=== PATIENT | male | born 1940 | race Caucasian/White ===

== ENCOUNTER 2020-12-04 11:12 | Emergency (ER) | payer OTHER ==
[~2020-12-04] VITALS: Ht 177.8 cm; Wt 77.1 kg
[2020-12-04 11:25] VITALS: BP 117/70
== END 2020-12-04 13:28 | disposition home or self-care (01) ==
LOC: EDBD 11:12 → ER 11:12
DX: N39.0 Urinary tract infection, site not specified (principal); K21.9 Gastro-esophageal reflux disease without esophagitis; J44.9 Chronic obstructive pulmonary disease, unspecified; I10 Essential (primary) hypertension; I25.2 Old myocardial infarction

== ENCOUNTER 2025-05-04 15:44 | Inpatient (IN) | payer OTHER, MEDICARE ==
[~2025-05-04] VITALS: Ht 182.9 cm; Wt 85.3 kg
--- NOTE | 2025-05-04 15:59 | ED.PDOC ---
SOB-HPI HPI Comments 85 y.o male with PMHx of COPD, CAD, and HLD, presents to the ED via EMS for a chief complaint of SOB associated with a non productive cough, and a generalized headache that started today. Patient reports panicking as soon as symptoms presented, prompting him to call 911. EMS reports on scene noting wheezing and SPO2 at 91% on 2 liters of his home oxygen. EMS then gave one breathing treatment en route with some relief. Patient is now saturating at 96%. Patient also mentions diarrhea last night with no nausea, vomiting, fever, chills or abdominal pain. Time Seen by MD: 15:43 Reviewed notes: Nurses Notes, Returned Case Inspector Notes, Medications, Allergies Information Source: Patient, Emergency Med Personnel Mode of Arrival: EMS Severity: Moderate Timing: Hours Duration: Since onset Context: At Rest PE Risk Factors: None History of: COPD Prehospital treatment: 12 Lead EKG, Breathing Tx (1), Rn Clinical Research, Oxygen Modifying Factors: Nothing Associated Signs and Symptoms: Wheeze, Cough, Anxiety If cough with SOB: Non-Productive Past Medical History PAST MEDICAL HISTORY: CAD, COPD, GERD, High Lipids, HTN, [place] Surgical History: Appendectomy, PTCA Family History Family History: Reviewed,noncontributory to illness Social History Smoker: Quit Greater Than 1 Year Alcohol: Occasionally Drugs: Denies Drug Use Lives In: Home Constitutional: denies: chills, diaphoresis, fatigue, fever, malaise, sweats, weakness, others EENTM: denies: blurred vision, double vision, ear bleeding, ear discharge, ear drainage, ear pain, ear ringing, eye pain, eye redness, hearing loss, mouth pain, mouth swelling, nasal discharge, nose bleeding, nose congestion, nose pain, photophobia, tearing, throat pain, throat swelling, voice changes, others Respiratory: reports: cough, SOB at rest, shortness of breath, wheezing; denies: hemoptysis, orthopnea, SOB with excertion, stridor, others Cardiovascular: denies: chest pain, dizzy spells, diaphoresis, Dyspnea on exertion, edema, irregular heart beat, left arm pain, lightheadedness, palpitations, PND, syncope, others Gastrointestinal: denies: abdomen distended, abdominal pain, blood streaked bowels, constipated, diarrhea, dysphagia, difficulty swallowing, hematemesis, melena, nausea, poor appetite, poor fluid intake, rectal bleeding, rectal pain, vomiting, others Genitourinary: denies: burning, dysuria, flank pain, frequency, hematuria, incontinence, penile discharge, penile sore, pain, testicle pain, testicle swel ling, urgency, others Neurological: reports: headache; denies: dizziness, fainting, left sided numbness, left sided weakness, numbness, paresthesia, pre-existing deficit, right sided numbness, right sided weakness, seizure, speech problems, tingling, tremors, weakness, others Musculoskeletal: denies: back pain, gout, joint pain, joint swelling, muscle pain, muscle stiffness, neck pain, others Integumetry: denies: bruises, change in color, change in hair/nails, dryness, laceration, lesions, lumps, rash, wounds, others Allergic/Immunocompromised: denies: Difficulty Healing, Frequent Infections, Hives, Itching, others Hematologic/Lymphatic: denies: anemia, blood clots, easy bleeding, easy bruising, swollen glands, others Endocrine: denies: excessive hunger, excessive sweating, excessive thirst, excessive urination, flushing, intolerance to cold, intolerance to heat, unexplained weight gain, unexplained weight loss, others Psychiatric: denies: anxiety, bipolar disorder, depression, hopeless, panic disorder, schizophrenia, sleepless, suicidal, others All Other Systems: Reviewed and Negative Physical Exam General Appearance: Moderate Distress HEENT: Normal ENT Inspection, Pharynx Normal, TMs Normal Neck: Full Range of Motion, Non-Tender, Normal, Normal Inspection Respiratory: Chest Non-Tender, Decreased Breath Sounds, No Accessory Muscle Use, Respiratory Distress Cardiovascular: No Edema, No JVD, No Murmur, No Gallop, Normal Peripheral Pulses, Regular Rate/Rhythm Breast Exam: Deferred Gastrointestinal: No Organomegaly, Non Tender, No Pulsatile Mass, Normal Bowel Sounds, Soft Genitalia: Deferred Pelvic: Deferred Rectal: Deferred Extremities: No calf tenderness, Normal capillary refill, No pedal edema Musculoskeletal : Apperance: Normal Neurologic: Alert, parking lot spotter II-XII nml as Tested, Motor Weakness, Normal Affect, Normal Mood, No Sensory Deficits Cerebellar Function: Normal Reflexes: Normal Skin: Dry, Normal Color, Warm Lymphatic: No Adenopathy EKG EKG : Pulse Rate (adult): 76 [place]: Normal Cardiac Rhythm: NSR ST: Nonsp Was a procedure done? Was a procedure done?: No Differential Dx Differential Diagnosis: COPD, Hyperventilation, Pneumonia, Respiratory Distress, URI X-Ray, Labs, Meds, VS Vital Signs Date Time Temp Pulse Resp B/P (MAP) Pulse Ox O2 Delivery O2 Flow Rate FiO2 05/04/25 16:50 98.7 90 22 140/74 (96) 96 98.7 05/04/25 16:30 Nasal Cannula* 2 28 05/04/25 16:06 16 97 Nasal Cannula* 3 32 05/04/25 15:59 76 05/04/25 15:47 76 Lab Test 05/04/25 17:00 05/04/25 16:04 Range/Units Urine Color Light-yellow Yellow Urine Clarity Clear Clear Urine pH 5.5 5.0-9.0 Urine Specific [place] 1.016 1.001-1.035 Urine Protein Negative Negative Urine Ketones Negative Negative Urine Blood Negative Negative /uL Urine Nitrite Negative Negative Urine Bilirubin Negative Negative Urine Urobilinogen Normal Negative mg/dL Urine Leukocyte Esterase Negative Negative /uL Urine RBC 1 0 - 3 /hpf Urine Microscopic WBC 1 0-3 /HPF Urine Squamous Epithelial Cells None seen <5 /hpf Urine Bacteria None seen None Seen /hpf Urine Hyaline Casts Mod 0 - 2 /lpf Urine Glucose Normal Normal mg/dL White Blood Count 5.9 4.4-10.8 10^3/uL Red Blood Count 4.43 L 4.5-5.90 10^6/uL Hemoglobin 14.5 13.5-17.5 g/dL Hematocrit 43.4 41.0-53.0 % Mean Corpuscular Volume 98.0 80.0-100.0 fL Mean Corpuscular Hemoglobin 32.7 H 28.0-32.0 pg Mean Corpuscular Hemoglobin Concent 33.4 32.0-36.0 g/dL Red Cell Distribution Width 12.9 11.8-14.3 % Platelet Count 138 L 140-450 10^3/uL Mean Platelet Volume 11.3 H 6.9-10.8 fL Neutrophils (%) (Auto) 65.5 37.0-80.0 % Lymphocytes (%) (Auto) 22.2 10.0-50.0 % Monocytes (%) (Auto) 9.7 0.0-12.0 % Eosinophils (%) (Auto) 2.0 0.0-7.0 % Basophils (%) (Auto) 0.6 0.0-2.0 % Neutrophils # (Auto) 3.9 1.6-8.6 10 ^3/uL Lymphocytes # (Auto) 1.3 0.4-5.4 10 ^3/uL Monocytes # (Auto) 0.6 0-1.3 10 ^3/uL Eosinophils # (Auto) 0.1 0-0.8 10 ^3/uL Basophils # (Auto) 0 0-0.2 10 ^3/uL Nucleated Red Blood Cells 0.1 % Sodium Level 141 136-145 mmol/L Potassium Level 5.2 H 3.5-5.1 mmol/L Chloride Level 106 98-107 mmol/L Carbon Dioxide Level 30 20-31 mmol/L Anion Gap 5 5-15 Blood Urea Nitrogen 25 H 9-23 mg/dL Creatinine 1.79 H 0.700-1.30 mg/dL Glomerular Filtration Rate Calc 36 >90 mL/min BUN/Creatinine Ratio 14.0 10.0-20.0 Serum Glucose 113 H 74-106 mg/dL Calcium Level 9.2 8.7-10.4 mg/dL B-Type Natriuretic Peptide 159.24 0-100 pg/mL Current Medications Medications (Trade) Dose Ordered Sig/[place] Route Start Time Stop Time Status Last Admin Methylprednisolone Sodium Succinate (Solu Medrol) 125 mg ONCE ONCE IV 05/04/25 16:00 05/04/25 16:01 DC 05/04/25 16:29 Ipratropium [place] (Atrovent Medneb) 1 mg ONCE ONCE N 05/04/25 16:00 05/04/25 16:01 DC 05/04/25 16:03 Albuterol (Ventolin Medneb) 10 mg ONCE ONCE N 05/04/25 16:00 05/04/25 16:01 DC 05/04/25 16:03 The CBC is within normal limits The chemistry panel shows a potassium of 5.2 The BUN is 25 the creatinine is 1.79 The BNP is 159.24 The patient was given a breathing treatment of albuterol and Atrovent to address the hyperkalemia The patient was also given Solu-Medrol 125 mg IV push The chest x-ray shows: IMPRESSION: 1. No acute cardiopulmonary pathology. There is a suggestion of interstitial lung disease in the lower lung zones. At this time, the patient is being admitted to the hospitalist Images Reviewed?: Images reviewed and evaluated by me Time of 1ST Reevaluation: 15:55 Reevaluation 1ST: Unchanged Patient Education/Counseling: Diagnosis, Treatment, Prognosis Family Education/Counseling: No Family Present SEPSIS Sepsis Screen Physician Orders Med Neb Initial Treatment (05/04/25 15:51) Chest Portable (05/04/25 15:51) Heplock Iv (05/04/25 15:51) Pulse Oximetry (05/04/25 15:51) Rn Clinical Research (05/04/25 15:51) Blood Pressure (05/04/25 15:51) Electrocardigram (05/04/25 16:51) Electrocardigram (05/04/25 18:51) Vital Signs Date Time Temp Pulse Resp B/P (MAP) Pulse Ox O2 Delivery O2 Flow Rate FiO2 05/04/25 16:50 98.7 90 22 140/74 (96) 96 98.7 05/04/25 16:30 Nasal Cannula* 2 28 05/04/25 16:06 16 97 Nasal Cannula* 3 32 05/04/25 15:59 76 05/04/25 15:47 76 Laboratory Tests Test 05/04/25 16:04 White Blood Count 5.9 10^3/uL (4.4-10.8) Medications Medications Dose Ordered Sig/[place] Route Start Time Stop Time Status Last Admin Dose Admin Albuterol 10 mg ONCE ONCE N 05/04/25 16:00 05/04/25 16:01 DC 05/04/25 16:03 Ipratropium [place] 1 mg ONCE ONCE N 05/04/25 16:00 05/04/25 16:01 DC 05/04/25 16:03 Methylprednisolone Sodium Succinate 125 mg ONCE ONCE IV 05/04/25 16:00 05/04/25 16:01 DC 05/04/25 16:29 Departure 1 Departure Time of Disposition: 19:27 Impression: Primary Impression: Acute respiratory failure Qualified Codes: J96.01 - Acute respiratory failure with hypoxia Additional Impression: COPD exacerbation Disposition: 09 ADMITTED INPATIENT Admit to: Tele Condition: Fair Critical Care Note Critical Care Time?: No Stability Stability form required: Yes Unstable for transfer: Telemetry monitoring (Telemetry monitoring required), ED Physician Assesment (Clinical assesment) Heart Score Heart Score: Heart Score Response (Comments) Value History Moderate Suspicious 1 EKG Repolarization Disturb 1 Age >65 2 Risk Factors 1 or 2 risk factors 1 Troponin Normal limit 0 Total 5 I personally scribed for ROBINSON SPANN MD ([email or web address]) on 05/04/25 at 15:59. Electronically submitted by Janae Austin ([facility]). ROBINSON SPANN MD May 04, 2025 15:59
[2025-05-04] MEDS: ALBUTEROL SULF 2.5 MG/0.5ML(0.5%) NEB SOLN HHN ONE (16:03)
[2025-05-04] MEDS: IPRATROPIUM BROM 0.5 MG/2.5ML INH SOL HHN ONE (16:03)
--- NOTE | 2025-05-04 16:06 | ECG ---
[facility] Test Date: 2025-05-04 Test Time: 15:47:21 Pat Name: MICHELLE SANCHEZ Department: ER Room: Gender: M [place] Man: LETICIA : 1940 Requested By: ROBINSON SPANN Order Number: [id number] Reading MD: Jadon Hannon Measurements Intervals [place] Rate: 76 P: 215 FL: 218 QRS: 55 QRSD: 129 T: 60 QT: 407 QTc: 458 Interpretive Statements Sinus or ectopic atrial rhythm Supraventricular bigeminy Borderline prolonged [place] interval Right bundle branch block Electronically Signed On 05-04-2025 19:39:23 PDT by Jadon Hannon Please click the below link to view image of tracing.
[2025-05-04 16:16] LABS: Hematocrit 43.4 % (41.0-53.0); Hemoglobin 14.5 g/dL (13.5-17.5); Mean Corpuscular Hemoglobin 32.7 pg (28.0-32.0); Mean Corpuscular Volume 98.0 fL (80.0-100.0); Nucleated Red Blood Cells % 0.1 %
[2025-05-04 16:25] LABS: Chloride 106 mmol/L (98-107); Potassium 5.2 mmol/L (3.5-5.1); Sodium 141 mmol/L (136-145)
[2025-05-04 16:26] LABS: Anion Gap 5 (5-15); Calcium 9.2 mg/dL (8.7-10.4); Carbon Dioxide 30 mmol/L (20-31)
[2025-05-04] MEDS: methylPREDNISolone SOD SUCC 125 MG/2 ML VL IV ONE (16:29)
[2025-05-04 16:31] LABS: BUN/Creatinine Ratio 14.0 (10.0-20.0); Blood Urea Nitrogen 25 mg/dL (9-23); Glucose 113 mg/dL (74-106)
--- NOTE | 2025-05-04 17:09 | DVH ---
AP portable chest CLINICAL INDICATION: sob FINDINGS: Heart size is enlarged. The aorta is tortuous. Prominent interstitial markings in the lung bases. IMPRESSION: 1. No acute cardiopulmonary pathology. There is a suggestion of interstitial lung disease in the lower lung zones.
[2025-05-04 17:52] LABS: Urine Protein, UAD Negative (Negative)
[2025-05-04 23:15] VITALS: PULSE 74; RESP 12; O2SAT 98
[2025-05-04] MEDS ORDERED: MORPHINE SULFATE INJ 2 MG/ml SYRG IV PRN (23:15)
[2025-05-04] MEDS ORDERED: NITROGLYCERIN 0.4 MG SL TAB SL PRN (23:15)
--- NOTE | 2025-05-04 23:19 | DVHHP2 ---
History of Present Illness History of Present Illness This is a 85-year-old male with past medical history of COPD with 3 L home oxygen, CAD with 3 stent three years ago, hyperlipidemia, insomnia, gait instability BIBEMS with a complain of shortness of breaths which is for last 3 years but worsen last 3 days which is sudden onset and gradually worsen day by day, aggravated on any exertion like walking but relief on rest. Patient also complain of mild chest pain, intermittent, 2/10 intensity, localized, no radiation. Both chest pain and SOB associated with dizziness and tired.As per ER physician, EMS reports on scene no wheezing SPO2 at 91% on 3 liters of his home oxygen. EMS then gave one breathing treatment en route with some relief. Patient is now saturating at 95% on arrival. Patient currently denies any cough, productive sputum, headache, nausea, abdominal pain, dysuria, any acute distress. PAST MEDICAL HISTORY: CAD with 3 stent 3 years ago, COPD on 3 L home oxygen, GERD, HLD, HTN, [place] Surgical History: Appendectomy, PTCA Family History: Reviewed,noncontributory to illness Social History Smoker: Quit Greater Than 1 Year Alcohol: Occasionally Drugs: Denies Drug Use Lives In: Home, alone Allergy: No known allergy PCP: [facility]. Review of Systems Constitutional: Yes: Weakness, Malaise; No: Fever, Chills, Sweats, Other Eyes: No: Pain, Vision change, Conjunctivae inflammation, Eyelid inflammation, Other, Redness ENT: Other (Bilateral hearing difficulty); No: Ear pain, Ear discharge, Nose pain, Nose discharge, Nose congestion, Mouth pain, Mouth swelling, Throat pain, Throat swelling Respiratory: Cough, Shortness of breath, SOB with excertion, Other (Currently on oxygen) Cardiovascular: Chest Pain; No: Palpitations, Orthopnea, Paroxysmal Noc. Dyspnea, Edema, Lt Headedness, Other Gastrointestinal: No: Nausea, Vomiting, Abdominal Pain, Diarrhea, Constipation, Melena, Hematochezia, Other Genitourinary: No Dysuria, No Frequency, No Incontinence, No Hematuria, No Retention, No Other Musculoskeletal: No: other, neck pain, shoulder pain, arm pain, back pain, hand pain, leg pain, foot pain Skin: No: Rash, Lesions, Jaundice, Bruising, Other Neurological: No: Weakness, Numbness, Incoordination, Change in speech, Confusion, Seizures, Other (Gait instability) Allergies: Coded Allergies: NO KNOWN ALLERGIES (Unverified , 12/04/20) Medications Current Medications Medications Dose Ordered Sig/[place] Route Start Time Stop Time Status Last Admin Dose Admin Nitroglycerin 0.4 mg Q5MINP PRN SL 05/04/25 23:15 Morphine Sulfate 2 mg Q30M PRN IV 05/04/25 23:15 Exam Vital Signs Vital Signs Date Time Temp Pulse Resp B/P (MAP) Pulse Ox O2 Delivery O2 Flow Rate FiO2 05/04/25 23:14 98.2 74 12 151/76 (101) 98 98.2 05/04/25 16:30 Nasal Cannula* 2 28 General Appearance: Alert, Oriented X3, Cooperative, mild distress, Other (On 3 L oxygen with nasal cannula) HEENT: Atraumatic, PERRLA, EOMI Respiratory: Normal air movement, Other (Bilateral basal occasional crepitation present) Cardiovascular: Regular rate, Normal S1, Normal S2 Abdominal: Normal bowel sounds, Soft, No tenderness Extremities: No cyanosis, Normal pulses, Other (1+ leg edema bilaterally) Skin: No rashes, No breakdown, No significant lesion Neuro: Normal speech, Sensation intact, Other (Gait instability) Labs/Xrays Labs Test 05/04/25 17:00 05/04/25 16:04 Range/Units Urine Color Light-yellow Yellow Urine Clarity Clear Clear Urine pH 5.5 5.0-9.0 Urine Specific [place] 1.016 1.001-1.035 Urine Protein Negative Negative Urine Ketones Negative Negative Urine Blood Negative Negative /uL Urine Nitrite Negative Negative Urine Bilirubin Negative Negative Urine Urobilinogen Normal Negative mg/dL Urine Leukocyte Esterase Negative Negative /uL Urine RBC 1 0 - 3 /hpf Urine Microscopic WBC 1 0-3 /HPF Urine Squamous Epithelial Cells None seen <5 /hpf Urine Bacteria None seen None Seen /hpf Urine Hyaline Casts Mod 0 - 2 /lpf Urine Glucose Normal Normal mg/dL White Blood Count 5.9 4.4-10.8 10^3/uL Red Blood Count 4.43 L 4.5-5.90 10^6/uL Hemoglobin 14.5 13.5-17.5 g/dL Hematocrit 43.4 41.0-53.0 % Mean Corpuscular Volume 98.0 80.0-100.0 fL Mean Corpuscular Hemoglobin 32.7 H 28.0-32.0 pg Mean Corpuscular Hemoglobin Concent 33.4 32.0-36.0 g/dL Red Cell Distribution Width 12.9 11.8-14.3 % Platelet Count 138 L 140-450 10^3/uL Mean Platelet Volume 11.3 H 6.9-10.8 fL Neutrophils (%) (Auto) 65.5 37.0-80.0 % Lymphocytes (%) (Auto) 22.2 10.0-50.0 % Monocytes (%) (Auto) 9.7 0.0-12.0 % Eosinophils (%) (Auto) 2.0 0.0-7.0 % Basophils (%) (Auto) 0.6 0.0-2.0 % Neutrophils # (Auto) 3.9 1.6-8.6 10 ^3/uL Lymphocytes # (Auto) 1.3 0.4-5.4 10 ^3/uL Monocytes # (Auto) 0.6 0-1.3 10 ^3/uL Eosinophils # (Auto) 0.1 0-0.8 10 ^3/uL Basophils # (Auto) 0 0-0.2 10 ^3/uL Nucleated Red Blood Cells 0.1 % Sodium Level 141 136-145 mmol/L Potassium Level 5.2 H 3.5-5.1 mmol/L Chloride Level 106 98-107 mmol/L Carbon Dioxide Level 30 20-31 mmol/L Anion Gap 5 5-15 Blood Urea Nitrogen 25 H 9-23 mg/dL Creatinine 1.79 H 0.700-1.30 mg/dL Glomerular Filtration Rate Calc 36 >90 mL/min BUN/Creatinine Ratio 14.0 10.0-20.0 Serum Glucose 113 H 74-106 mg/dL Calcium Level 9.2 8.7-10.4 mg/dL B-Type Natriuretic Peptide 159.24 0-100 pg/mL SEPSIS Sepsis Screen Date sepsis recognized/suspect: May 04, 2025 Time Sepsis recognized/suspect: 1543 Recent Procedure: No On Antibiotic Therapy: No Respiratory Rate >20: No Heart Rate >90: No Temp<36 C (96.8 F) or >38.3 C: No SBP <90 or MAP <65 mmHG: No New Acute Mental Status Change: No Is the patient on CPAP, BIPAP,: No Physician Orders Med Neb Initial Treatment (05/04/25 15:51) Chest Portable (05/04/25 15:51) Heplock Iv (05/04/25 15:51) Pulse Oximetry (05/04/25 15:51) Livestock [place] (05/04/25 15:51) Blood Pressure (05/04/25 15:51) Electrocardigram (05/04/25 15:51) Electrocardigram (05/04/25 16:51) Electrocardigram (05/04/25 18:51) Admit (05/04/25 23:07) Nitroglycerin Sublingual (Ntrostat Subli (05/04/25 23:15) Morphine Sulfate Injection (05/04/25 23:15) Oxygen By Nasal Cannula (05/04/25 23:07) Diet: (05/04/25 23:07) Vital Signs Date Time Temp Pulse Resp B/P (MAP) Pulse Ox O2 Delivery O2 Flow Rate FiO2 05/04/25 23:14 98.2 74 12 151/76 (101) 98 98.2 05/04/25 16:50 98.7 90 22 140/74 (96) 96 98.7 05/04/25 16:30 Nasal Cannula* 2 28 05/04/25 16:06 16 97 Nasal Cannula* 3 32 05/04/25 15:59 76 05/04/25 15:47 76 Laboratory Tests Test 05/04/25 16:04 White Blood Count 5.9 10^3/uL (4.4-10.8) Medications Medications Dose Ordered Sig/[place] Route Start Time Stop Time Status Last Admin Dose Admin Albuterol 10 mg ONCE ONCE [facility] 05/04/25 16:00 05/04/25 16:01 DC 05/04/25 16:03 10 MG Ipratropium [place] 1 mg ONCE ONCE N 05/04/25 16:00 05/04/25 16:01 DC 05/04/25 16:03 1 MG Methylprednisolone Sodium Succinate 125 mg ONCE ONCE IV 05/04/25 16:00 05/04/25 16:01 DC 05/04/25 16:29 125 MG Assessment/Plan Assessment/Plan # Acute hypoxic respiratory failure due to COPD exacerbation -Patient came with shortness of breaths -Use home oxygen 3 L for COPD -Patient desaturating 91 % and after breathing treatment improving 95% with 3 L oxygen -CXR-There is a suggestion of interstitial lung disease in the lower lung zones. -Received albuterol nebulization, ipratropium nebulization and methylprednisolone 125 mg loading dose in ears -EKG: Sinus rhythm, HR 76, QTC 458 -BNP 159.24>113.23 -Troponin 5 -Albuterol nebulization q.6h -Ipratropium nebulization q.6 H -Ceftriaxone 1 g daily -Methylprednisolone 40 mg IV b.i.d. -Incentive spirometry -NSS 75 cc per hour -CT chest without contrast # ELIDA due to vasomotor nephropathy -Serum creatinine 1.79, unknown baseline -NSS 75 cc per hour -Monitor BMP # Coronary artery disease with 3 stent -Cardiology stopped aspirin 81 mg and lisinopril 2.5 mg recently. # Hyperlipidemia -Atorvastatin 40 mg p.o. daily # Glaucoma -Latanoprost 0.005% 1 drop both eye daily # Osteoarthritis -Tylenol 650 mg q.6 p.r.n. for pain # Call [place] [facility] [phone] for medication reconsideration. # Diet: Cardiac -GI prophylaxis: Famotidine 20 mg p.o. b.i.d. -DVT prophylaxis: Lovenox 30 mg sc daily Plan of care discussions, more than 27 minute spent. Full code status. Case discussed with Dr. Vargas Plan discussed with: Patient, Other (Nurse) My Orders Orders - IR[facility] IQBAL Procedure Category Date Status Time Admit ADMIT 05/04/25 Transmitted 23:07 Nitroglycerin PHA 05/04/25 In Process Sublingual (Ntrostat 23:15 Morphine Sulfate PHA 05/04/25 In Process Injection 23:15 Oxygen By Nasal RT 05/04/25 Transmitted Cannula 23:07 Diet: ORDERS 05/04/25 Transmitted 23:07 Date of Service: May 04, 2025 Billing Provider: ABRIL VARGAS MD Common Visit Codes: [id number] INP/OBS CARE (HIGH) Secondary Visit Codes: 19435-[id number] CARE PLAN 30 MINUTES IRMA IQBAL May 04, 2025 23:19
[2025-05-04] MEDS: SODIUM CHLORIDE 0.9% 1,000 ML IV SCH (23:30)
[2025-05-04] MEDS ORDERED: ALBUTEROL SULF 2.5 MG/0.5ML(0.5%) NEB SOLN NEB PRN (23:30)
[2025-05-04 23:54] VITALS: BP 151/76; PULSE 74; RESP 12; TEMP 98.2; O2SAT 98
[2025-05-05] VITALS (17 sets, daily range): BP systolic 124–145; BP diastolic 68–82; PULSE 60–104; RESP 16–22; TEMP 97.3–98.1; O2SAT 92–99
[2025-05-05] MEDS: cefTRIAXone 1GM/50ML D5W 50 ML IV ONE
[2025-05-05] MEDS: MELATONIN 5 MG TAB PO ONE
[2025-05-05] MEDS ORDERED: CARB0.5D8 EACHEYE (03:57)
[2025-05-05] MEDS ORDERED: GUAI200T6 PO (04:00)
[2025-05-05] MEDS ORDERED: GUAI400T35 PO (04:00)
[2025-05-05] MEDS ORDERED: LATA0.008 EACHEYE (04:00)
[2025-05-05] MEDS ORDERED: LISI2.5T47 PO (04:01)
[2025-05-05] MEDS: IPRATROPIUM BROM 0.5 MG/2.5ML INH SOL NEB SCH ×3 (07:21→22:04)
[2025-05-05 09:02] LABS: Anion Gap 11 (5-15); Carbon Dioxide 24 mmol/L (20-31); Chloride 104 mmol/L (98-107); Potassium 5.1 mmol/L (3.5-5.1); Sodium 139 mmol/L (136-145)
[2025-05-05 09:03] LABS: Calcium 9.9 mg/dL (8.7-10.4)
[2025-05-05 09:08] LABS: BUN/Creatinine Ratio 16.3 (10.0-20.0); Triglycerides 94 mg/dL (< 150)
[2025-05-05 09:09] LABS: Blood Urea Nitrogen 30 mg/dL (9-23); Glucose 168 mg/dL (74-106); HDL Cholesterol 50 mg/dL (40-59)
[2025-05-05 09:18] LABS: Cholesterol 210 mg/dL (< 200)
--- NOTE | 2025-05-05 10:17 | DVH ---
Procedure: CT CHEST WITHOUT CONTRAST Reason for study/Clinical History: ACUTE HYPOXIC RESPIRATORY FAILURE Comparison Study: None TECHNIQUE: Multidetector CT of the chest was performed from the lung apices to the upper abdomen with out the use of intravenous contract. Axial, coronal and sagittal multiplanar reformats were performed . Radiation Dose Information: CT Dose: CTDI volume is 9.58 mGy. Dose-length product is 383.1 mGy*cm The dose indicators for CT are the volume Computed Tomography (CT) Dose Index (CTDIvol) and the Dose Length Product (DLP), and are measured in units of mGy and mGy-cm, respectively. These indicators are not patient dose, but values generated from the CT scanner acquisition factors. The report includes radiation exposure data for exposures received during this examination. FINDINGS: Lower neck: Unremarkable. Lungs: Patchy airspace opacities are present in the lingula and bilateral lung bases, [id number]. No suspicious pulmonary nodule. Biapical scarring. Severe centrilobular emphysema. Heart/Vascular Structures: Cardiomegaly. Coronary artery calcifications. Vascular calcifications of t he aorta. Lymph Nodes: No adenopathy Pleura: No pleural effusion or significant pneumothorax. Musculoskeletal: No acute osseous abnormality. Soft tissues: Normal. Upper abdomen: Limited portions of the upper abdomen are unremarkable. IMPRESSION: Patchy airspace opacities are present in the lingula and bilateral lung bases, [id number]. No suspicious pulmonary nodule. Biapical scarring. Severe centrilobular emphysema.
[2025-05-05] MEDS: FAMOTIDINE 20 MG TAB PO SCH (10:36)
[2025-05-05] MEDS: methylPREDNISolone SOD SUCC 40 MG/ML VL IV SCH (10:36)
[2025-05-05] MEDS: ENOXAPARIN SOD 30 MG/0.3 ML SYRINGE SC SCH (10:37)
[2025-05-05] MEDS: ALBUTEROL SULF 2.5 MG/0.5ML(0.5%) NEB SOLN NEB SCH ×2 (10:41→22:04)
[2025-05-05] MEDS: DEXTROSE (50%) 50ML SYRG IV ONE (10:44)
[2025-05-05] MEDS: SODIUM BICARB 8.4% 50Meq/50ml SYR INJ IV ONE (10:51)
[2025-05-05] MEDS: InsuLIN REG 1unit/0.01ml Soln (100units/ml) IV ONE (11:00)
[2025-05-05] MEDS: AZITHROMYCIN 500MG/ 250ML 250 ML IV ONE (12:04)
[2025-05-05] MEDS ORDERED: IPRATROPIUM BROM 0.5 MG/2.5ML INH SOL NEB SCH (14:00)
[2025-05-05] MEDS ORDERED: ALBUTEROL SULF 2.5 MG/0.5ML(0.5%) NEB SOLN NEB SCH (14:00)
[2025-05-05] MEDS: LACTATED RINGER'S 1,000 ML IV SCH (14:00)
[2025-05-05 14:59] LABS: Alanine Aminotransferase 11.0 U/L (7-40); Albumin 4.2 g/dL (3.2-4.8); Alkaline Phosphatase 66.0 U/L (46-116); Bilirubin, Total 0.4 mg/dL (0.2-1.0); Total Protein 6.4 g/dL (5.7-8.2)
[2025-05-05 15:00] LABS: Bilirubin, Direct 0.1 mg/dL (<0.3)
[2025-05-05] MEDS: LACTATED RINGER'S 1,000 ML IV ONE (16:30)
--- NOTE | 2025-05-05 17:12 | DVHPNRES ---
Progress Note Date Seen: May 05, 2025 Resident Creating Document: KASSIDY REESE RESIDENT Medical Necessity Reason Pt with a Central, PICC or Fol: No Subjective Review of Systems This is a 85-year-old male with past medical history of COPD with 3 L home oxygen, CAD with 3 stent three years ago, hyperlipidemia, insomnia, gait instability BIBEMS with a complain of shortness of breaths which is for last 3 years but worsen last 3 days which is sudden onset and gradually worsen day by day, aggravated on any exertion like walking but relief on rest. He gets nervous when he has shortness of breath. Patient also complain of mild chest pain, intermittent, 2/10 intensity, localized, no radiation. He complains of dry cough which is off and on. Both chest pain and SOB associated with dizziness and tired. After breathing treatment from EMS en route to hospital, he reports with some relief. Patient was saturating at 95% on arrival to ED. Patient currently denies any productive sputum, headache, nausea, abdominal pain, dysuria, any acute distress. Patient was evaluated at bedside. He is currently saturating on 2 L oxygen. Past history: CAD with 3 stent 3 years ago, COPD on 3 L home oxygen, GERD, HLD, HTN, MS Surgical History: Appendectomy, PTCA Family History: Reviewed,noncontributory to illness Social History: Quit smoking 10 years ago, denies alcohol use, recreational drug use. ROS: Constitutional: Weakness, Malaise; No Fever, Chills, Sweats, Other HEENT: Denies changes in vision and hearing. Respiratory: Complains of shortness of breaths and dry cough Cardiovascular: Complains of palpitations GI: Denies abdominal pain, nausea, vomiting and diarrhea. : Denies dysuria and urinary frequency. Musculoskeletal: Myalgia present in all extremities. No joint pain Skin: Denies rash and pruritus. Neurological: Denies dizziness, headache, vision or hearing problems Objective vital signs Vital Sign Date Time Temp Pulse Resp B/P (MAP) Pulse Ox O2 Delivery O2 Flow Rate FiO2 05/05/25 13:00 97.9 63 20 124/68 (86) 92 97.9 05/05/25 10:41 Nasal Cannula 2.0 05/05/25 10:41 28 Total Intake and Output 05/04/25 05/04/25 05/05/25 15:00 23:00 07:00 Intake Total 50 ml Balance 50 ml medications Current Medications Medications Dose Ordered Sig/[place] Route Start Time Stop Time Status Last Admin Dose Admin Ceftriaxone Sodium 50 ml @ 100 mls/hr DAILY@2100 IV 05/05/25 21:00 Famotidine 20 mg Q12HR PO 05/05/25 10:00 05/05/25 10:36 20 MG Enoxaparin Sodium 30 mg DAILY SC 05/05/25 10:00 05/05/25 10:37 30 MG Sodium Chloride 1,000 ml @ 75 mls/hr [id number] IV 05/04/25 23:30 05/05/25 12:05 75 MLS/HR Atorvastatin Calcium 40 mg HS PO 05/05/25 22:00 Latanoprost 1 drop HS EACHEYE 05/05/25 22:00 Acetaminophen 650 mg Q6HP PRN PO 05/05/25 00:00 Melatonin 5 mg HS PO 05/05/25 22:00 Azithromycin 250 ml @ 125 mls/hr DAILY IV 05/06/25 10:00 Methylprednisolone Sodium Succinate 40 mg DAILY IV 05/06/25 10:00 Albuterol 2.5 mg Q8HR NEB 05/05/25 22:00 Ipratropium [place] 0.5 mg Q8HR NEB 05/05/25 22:00 Examination General: Patient alert and oriented in person, place and time. Patient following commands. HEENT: Normocephalic, atraumatic, moist mucous membranes Respiratory/pulmonary: Reduced breath sounds bilaterally, or appreciated in bilateral lower lungs. Cardiovascular: Normal heart sounds S1 and S2 with no associated murmurs Abdomen: Umbilical hernia, nontender, no changes from baseline. [place] red papules lesions. Liver palpable below the costal margin. Extremities: There is no peripheral edema present at the lower extremities. Skin: No rashes or pruritus, there is no sacral edema present at this time. Neurological: Intact cranial nerves with no focal neurologic deficits laboratory and microbiology Laboratory Tests 05/05/25 11:33 05/05/25 08:37 05/04/25 16:04 Test 05/05/25 08:37 Range/Units Serum Glucose 168 H 74-106 mg/dL Problem List/Assessment/Plan Problem List/Assessment/Plan #SIRS with AOD #COPD exacerbation, pneumonia possible, Gram-negative Gram-positive -Continue IV ceftriaxone, azithromycin -Continue nebulization with albuterol, ipratropium bromide -Chest x-ray shows interstitial lung disease. -CT chest shows: Patchy airspace opacities are present in the lingula and bilateral lung bases, [id number]. No suspicious pulmonary nodule. Biapical scarring. Severe centrilobular emphysema. 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 #Hyperkalemia -Potassium was 5.2 today. Managed with insulin, D5. We will continue to monitor and manage #CAD with 3 stents #HLD -Ordered hepatic panel #Glaucoma -Continue at-home medication Topical latanoprost #Osteoarthritis #Right bundle-branch block -EKG shows right bundle-branch block, ventricular bigeminy, prolonged [place]. #Umbilical hernia -Non strangulated, nontender no change from baseline. PCP: director emergency services consulted for new PCP Goals of care discussed at patient's bedside for more than 35 minute Full code Plan discussed with Dr. Dunlap Plan discussed with: Patient My Orders My Orders Orders - KASSIDY REESE RESIDENT Procedure Category Date Status Time * Patient Safety Manager CONS 05/05/25 Transmitted Consult Bladder Scan ORDERS 05/05/25 Transmitted 13:50 Lactated Ringer's PHA 05/05/25 Logged 16:30 KASSIDY REESE RESIDENT May 05, 2025 17:12
[2025-05-05] MEDS: ATORVASTATIN 20 MG TAB PO SCH (21:13)
[2025-05-05] MEDS: cefTRIAXone 1GM/50ML D5W 50 ML IV SCH (21:14)
[2025-05-05] MEDS: MELATONIN 5 MG TAB PO SCH (21:23)
[2025-05-05] MEDS: LATANOPROST 0.005 % OPTH(EYE) SOL 2.5ML EACHEYE SCH (21:36)
[2025-05-06] VITALS (9 sets, daily range): BP systolic 121–143; BP diastolic 63–76; PULSE 59–77; RESP 16–20; TEMP 36.7; O2SAT 94–100
--- NOTE | 2025-05-06 01:30 | DVHSR ---
APPROVED REPORT EXAM: Two-dimensional and M-mode echocardiogram with Doppler and color Doppler. Blood Pressure: 145/82 mmHg INDICATION Heart Failure RISK FACTORS Height: 6', Weight: 185 DIMENSIONS LVDd4.1 (3.8-5.7cm)LA (2D)3.9 (1.9-4.0cm)Aortic Root3.8 (2.0-3.7cm) LVDs2.5 (2.5-4.0cm)LA (MM) (1.9-4.0cm)Aortic Cusp Exc1.4 (1.5-2.0cm) EF (%) 70.0 (55-70%)Rt. Atrium4.5 (1.9-4.0cm)Asc. 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
[2025-05-06 06:06] LABS: Hematocrit 36.6 % (41.0-53.0); Hemoglobin 12.2 g/dL (13.5-17.5); Mean Corpuscular Hemoglobin 32.7 pg (28.0-32.0); Mean Corpuscular Volume 97.9 fL (80.0-100.0); Nucleated Red Blood Cells % 0.0 %
[2025-05-06 06:31] LABS: Alanine Aminotransferase 10 U/L (7-40); Albumin 3.6 g/dL (3.2-4.8); Alkaline Phosphatase 53 U/L (46-116); Anion Gap 9 (5-15); BUN/Creatinine Ratio 18.9 (10.0-20.0); Calcium 9.8 mg/dL (8.7-10.4); Carbon Dioxide 27 mmol/L (20-31); Chloride 105 mmol/L (98-107); Glucose 93 mg/dL (74-106); Potassium 5.0 mmol/L (3.5-5.1); Sodium 141 mmol/L (136-145)
[2025-05-06 06:32] LABS: Bilirubin, Total 0.4 mg/dL (0.2-1.0); Blood Urea Nitrogen 35 mg/dL (9-23); Total Protein 5.4 g/dL (5.7-8.2)
[2025-05-06] MEDS: methylPREDNISolone SOD SUCC 40 MG/ML VL IV SCH (09:14)
[2025-05-06] MEDS: AZITHROMYCIN 500MG/ 250ML 250 ML IV SCH (09:14)
[2025-05-06 10:38] LABS: Hepatitis B Surface Antigen Negative (Negative)
[2025-05-06 10:40] LABS: Hepatitis C Antibody Negative (Negative)
[2025-05-06] MEDS: ACETAMINOPHEN 325 MG TAB PO PRN (11:40)
[2025-05-06] MEDS ORDERED: TAMS0.4C39 PO (13:28)
[2025-05-06] MEDS ORDERED: AZIT500T66 PO (13:28)
[2025-05-06] MEDS ORDERED: PRED20TA2 PO (13:28)
--- NOTE | 2025-05-06 14:15 | DVHDSRES ---
Discharge Summary Date of Admission Resident Creating Document: KASSIDY REESE RESIDENT May 04, 2025 at 23:07 Date of Discharge: May 06, 2025 Admitting Diagnosis Acute hypoxic respiratory failure due to COPD exacerbation Labs/Diagnostic Data: Laboratory Results Test 05/06/25 05:33 05/05/25 08:37 05/04/25 23:58 05/04/25 17:00 White Blood Count 9.2 10^3/uL (4.4-10.8) Red Blood Count 3.74 10^6/uL (4.5-5.90) Hemoglobin 12.2 g/dL (13.5-17.5) Hematocrit 36.6 % (41.0-53.0) Mean Corpuscular Volume 97.9 fL (80.0-100.0) Mean Corpuscular Hemoglobin 32.7 pg (28.0-32.0) Mean Corpuscular Hemoglobin Concent 33.4 g/dL (32.0-36.0) Red Cell Distribution Width 13.0 % (11.8-14.3) Platelet Count 113 10^3/uL (140-450) Mean Platelet Volume 11.4 fL (6.9-10.8) Neutrophils (%) (Auto) 85.4 % (37.0-80.0) Lymphocytes (%) (Auto) 5.6 % (10.0-50.0) Monocytes (%) (Auto) 8.9 % (0.0-12.0) Eosinophils (%) (Auto) 0.0 % (0.0-7.0) Basophils (%) (Auto) 0.1 % (0.0-2.0) Neutrophils # (Auto) 7.8 10 ^3/uL (1.6-8.6) Lymphocytes # (Auto) 0.5 10 ^3/uL (0.4-5.4) Monocytes # (Auto) 0.8 10 ^3/uL (0-1.3) Eosinophils # (Auto) 0 10 ^3/uL (0-0.8) Basophils # (Auto) 0 10 ^3/uL (0-0.2) Nucleated Red Blood Cells 0.0 % Sodium Level 141 mmol/L (136-145) Potassium Level 5.0 mmol/L (3.5-5.1) Chloride Level 105 mmol/L (98-107) Carbon Dioxide Level 27 mmol/L (20-31) Anion Gap 9 (5-15) Blood Urea Nitrogen 35 mg/dL (9-23) Creatinine 1.85 mg/dL (0.700-1.30) Glomerular Filtration Rate Calc 35 mL/min (>90) BUN/Creatinine Ratio 18.9 (10.0-20.0) Serum Glucose 93 mg/dL (74-106) Calcium Level 9.8 mg/dL (8.7-10.4) Total Bilirubin 0.4 mg/dL (0.2-1.0) Aspartate Amino Transferase (AST) 26 U/L (13-40) Alanine Aminotransferase (ALT) 10 U/L (7-40) Alkaline Phosphatase 53 U/L (46-116) Total Protein 5.4 g/dL (5.7-8.2) Albumin 3.6 g/dL (3.2-4.8) Hemoglobin A1c 5.1 % A1C (<5.7) Direct Bilirubin 0.1 mg/dL (<0.3) B-Type Natriuretic Peptide 170.70 pg/mL (0-100) Triglycerides Level 94 mg/dL (< 150) Cholesterol Level 210 mg/dL (< 200) LDL Cholesterol 151 mg/dL (< 100) HDL Cholesterol 50 mg/dL (40-59) Vitamin B12 Level 296 pg/mL (211-911) Vitamin D 25-Hydroxy 54.5 ng/mL (30.0-100) Thyroid Stimulating Hormone (TSH) 0.53 uIU/mL (0.55-4.78) Free Thyroxine (T4) Calculated 1.09 ng/dL (0.89-1.76) Hepatitis B Surface Antigen Negative (Negative) Hepatitis C Antibody Negative (Negative) Troponin I High Sensitivity 5 ng/L (</=54) Urine Color Light-yellow (Yellow) Urine Clarity Clear (Clear) Urine pH 5.5 (5.0-9.0) Urine Specific [place] 1.016 (1.001-1.035) Urine Protein Negative (Negative) Urine Ketones Negative (Negative) Urine Blood Negative /uL (Negative) Urine Nitrite Negative (Negative) Urine Bilirubin Negative (Negative) Urine Urobilinogen Normal mg/dL (Negative) Urine Leukocyte Esterase Negative /uL (Negative) Urine RBC 1 /hpf (0 - 3) Urine Microscopic WBC 1 /HPF (0-3) Urine Squamous Epithelial Cells None seen /hpf (<5) Urine Bacteria None seen /hpf (None Seen) Urine Hyaline Casts Mod /lpf (0 - 2) Urine Glucose Normal mg/dL (Normal) Other Laboratory Tests 05/06/25 05:33 Brief Hx & Hospital Course: Danyel Velasco is a 85-year-old male with past medical history of COPD with 3 L home oxygen, CAD with 3 stent three years ago, hyperlipidemia, insomnia, gait instability BIBEMS with a complain of shortness of breaths which is for last 3 years but worsen last 3 days which is sudden onset and gradually worsen day by day, aggravated on any exertion like walking but relief on rest. He gets nervous when he has shortness of breath. Patient also complain of mild chest pain, intermittent, 2/10 intensity, localized, no radiation. He complains of dry cough which is off and on. Both chest pain and SOB are associated with dizziness and tiredness. After breathing treatment from EMS en-route to hospital, he reports some relief. Patient was saturating at 95% on arrival to ED. His chest x-ray eas showing interstitial lung disease and CT chest showed patchy airspace opacities in the lingula and bilateral lung bases, [id number], and centrilobular emphysema. His labs showed hyperkalemia, increased BUN, Creatinine. Negative Hepatitis B and Hepatitis C During his stay in the hospital, he was managed with IV ceftriaxone, azithromycin, nebulization with albuterol, ipratropium bromide, IV fluids. He is now saturating on 2 L oxygen, and is stable for discharge. Discharge Plan: Please start Flomax 0.4 mg once daily. Please take azithromycin 500 mg once daily for five days. Please take prednisolone 20 mg twice daily for five days. Please follow-up with PCP in one week. 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 Medications: Please start Flomax 0.4 mg once daily. Please take azithromycin 500 mg once daily for five days. Please take prednisolone 20 mg twice daily for five days. Care Plan: Care plan: Please take Flomax 0.4 mg once daily. Please take azithromycin 500 mg once daily for five days. Please take prednisolone 20 mg twice daily for five days. Please follow-up with PCP in one week. Scheduled Azithromycin (Azithromycin), 1 TAB PO DAILY Carboxymethylcellulose-Glyceri (Refresh Optive), 1 DROP EACHEYE ONCE, (Reported) Guaifenesin (Gnp Tab Tussin), 600 MG PO DAILY, (Reported) Latanoprost (Latanoprost), 1 DROP EACHEYE QPM, (Reported) Latanoprost (Latanoprost), 1 DROP EACHEYE QPM, (Reported) Lisinopril (Lisinopril), 2.5 MG PO DAILY, (Reported) Prednisone (Prednisone), 20 MG PO BID Tamsulosin Hcl (Tamsulosin Hcl), 1 CAP PO DAILY Miscellaneous Medications Guaifenesin (Guaifenesin), 600 MG PO, (Reported) Discharge Statement: "Patient was advised to return to the ER or call 911 if any headaches, dizziness, shortness of breath, chest pain, abdominal pain, bleeding, fevers, or worsening of medical condition. Patient was counseled about treatment plan, medications, possible side effects, patientverbalized understanding. All questions were answered to the best of my ability. 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
--- NOTE | 2025-05-06 18:00 | DVHDSRES ---
Discharge Summary Date of Admission Resident Creating Document: KASSIDY REESE RESIDENT May 04, 2025 at 23:07 Date of Discharge: May 06, 2025 Admitting Diagnosis Acute on chronic respiratory failure, due to COPD exacerbation Wounds: No large wounds Labs/Diagnostic Data: Laboratory Results Test 05/06/25 05:33 05/05/25 08:37 05/04/25 23:58 05/04/25 17:00 White Blood Count 9.2 10^3/uL (4.4-10.8) Red Blood Count 3.74 10^6/uL (4.5-5.90) Hemoglobin 12.2 g/dL (13.5-17.5) Hematocrit 36.6 % (41.0-53.0) Mean Corpuscular Volume 97.9 fL (80.0-100.0) Mean Corpuscular Hemoglobin 32.7 pg (28.0-32.0) Mean Corpuscular Hemoglobin Concent 33.4 g/dL (32.0-36.0) Red Cell Distribution Width 13.0 % (11.8-14.3) Platelet Count 113 10^3/uL (140-450) Mean Platelet Volume 11.4 fL (6.9-10.8) Neutrophils (%) (Auto) 85.4 % (37.0-80.0) Lymphocytes (%) (Auto) 5.6 % (10.0-50.0) Monocytes (%) (Auto) 8.9 % (0.0-12.0) Eosinophils (%) (Auto) 0.0 % (0.0-7.0) Basophils (%) (Auto) 0.1 % (0.0-2.0) Neutrophils # (Auto) 7.8 10 ^3/uL (1.6-8.6) Lymphocytes # (Auto) 0.5 10 ^3/uL (0.4-5.4) Monocytes # (Auto) 0.8 10 ^3/uL (0-1.3) Eosinophils # (Auto) 0 10 ^3/uL (0-0.8) Basophils # (Auto) 0 10 ^3/uL (0-0.2) Nucleated Red Blood Cells 0.0 % Sodium Level 141 mmol/L (136-145) Potassium Level 5.0 mmol/L (3.5-5.1) Chloride Level 105 mmol/L (98-107) Carbon Dioxide Level 27 mmol/L (20-31) Anion Gap 9 (5-15) Blood Urea Nitrogen 35 mg/dL (9-23) Creatinine 1.85 mg/dL (0.700-1.30) Glomerular Filtration Rate Calc 35 mL/min (>90) BUN/Creatinine Ratio 18.9 (10.0-20.0) Serum Glucose 93 mg/dL (74-106) Calcium Level 9.8 mg/dL (8.7-10.4) Total Bilirubin 0.4 mg/dL (0.2-1.0) Aspartate Amino Transferase (AST) 26 U/L (13-40) Alanine Aminotransferase (ALT) 10 U/L (7-40) Alkaline Phosphatase 53 U/L (46-116) Total Protein 5.4 g/dL (5.7-8.2) Albumin 3.6 g/dL (3.2-4.8) Hemoglobin A1c 5.1 % A1C (<5.7) Direct Bilirubin 0.1 mg/dL (<0.3) B-Type Natriuretic Peptide 170.70 pg/mL (0-100) Triglycerides Level 94 mg/dL (< 150) Cholesterol Level 210 mg/dL (< 200) LDL Cholesterol 151 mg/dL (< 100) HDL Cholesterol 50 mg/dL (40-59) Vitamin B12 Level 296 pg/mL (211-911) Vitamin D 25-Hydroxy 54.5 ng/mL (30.0-100) Thyroid Stimulating Hormone (TSH) 0.53 uIU/mL (0.55-4.78) Free Thyroxine (T4) Calculated 1.09 ng/dL (0.89-1.76) Hepatitis B Surface Antigen Negative (Negative) Hepatitis C Antibody Negative (Negative) Troponin I High Sensitivity 5 ng/L (</=54) Urine Color Light-yellow (Yellow) Urine Clarity Clear (Clear) Urine pH 5.5 (5.0-9.0) Urine Specific [place] 1.016 (1.001-1.035) Urine Protein Negative (Negative) Urine Ketones Negative (Negative) Urine Blood Negative /uL (Negative) Urine Nitrite Negative (Negative) Urine Bilirubin Negative (Negative) Urine Urobilinogen Normal mg/dL (Negative) Urine Leukocyte Esterase Negative /uL (Negative) Urine RBC 1 /hpf (0 - 3) Urine Microscopic WBC 1 /HPF (0-3) Urine Squamous Epithelial Cells None seen /hpf (<5) Urine Bacteria None seen /hpf (None Seen) Urine Hyaline Casts Mod /lpf (0 - 2) Urine Glucose Normal mg/dL (Normal) Other Laboratory Tests 05/06/25 05:33 Brief Hx & Hospital Course: Rod Montaño is a 85-year-old male with past medical history of COPD with 3 L home oxygen, CAD with 3 stent three years ago, hyperlipidemia, insomnia, gait instability BIBEMS with a complain of worsening shortness of breath, which is sudden onset and gradually worsen day by day, aggravated on any exertion like walking but relief on rest. He gets nervous when he has shortness of breath. Patient also complain of mild chest pain, intermittent, 2/10 intensity, localized, no radiation. He complains of dry cough which is off and on. Both chest pain and SOB associated with dizziness and tired. After breathing treatment from EMS en route to hospital, he reports with some relief. Patient was saturating at 95% on arrival to ED. Patient currently denies any productive sputum, headache, nausea, abdominal pain, dysuria, any acute distress. Patient was evaluated at bedside. He is now saturating on 2 L oxygen, which is his baseline at home. Chest x-ray shows interstitial lung disease. CT chest showed Patchy airspace opacities are present in the lingula and bilateral lung bases, [id number]. During his stay he was treated with IV ceftriaxone, azithromycin, nebulization, methylprednisolone. He was given IV fluids. Eventually his condition improved and he is stable for discharge. He will finish azithromycin course at home. Discharge plan: Start Flomax 0.4 mg once daily. Start azithromycin 500 mg once daily for five days. Start prednisolone 20 mg twice daily for five days. Follow-up with PCP in one week. Operations or Procedures CT CHEST WITHOUT CONTRAST Reason for study/Clinical History: ACUTE HYPOXIC RESPIRATORY FAILURE Comparison Study: None TECHNIQUE: Multidetector CT of the chest was performed from the lung apices to the upper abdomen without the use of intravenous contract. Axial, coronal and sagittal multiplanar reformats were performed. Radiation Dose Information: CT Dose: CTDI volume is 9.58 mGy. Dose-length product is 383.1 mGy*cm The dose indicators for CT are the volume Computed Tomography (CT) Dose Index (CTDIvol) and the Dose Length Product (DLP), and are measured in units of mGy and mGy-cm, respectively. These indicators are not patient dose, but values generated from the CT scanner acquisition factors. The report includes radiation exposure data for exposures received during this examination. FINDINGS: Lower neck: Unremarkable. Lungs: Patchy airspace opacities are present in the lingula and bilateral lung bases, [id number]. No suspicious pulmonary nodule. Biapical scarring. Severe centrilobular emphysema. Heart/Vascular Structures: Cardiomegaly. Coronary artery calcifications. Vascular calcifications of the aorta. Lymph Nodes: No adenopathy Pleura: No pleural effusion or significant pneumothorax. Musculoskeletal: No acute osseous abnormality. Soft tissues: Normal. Upper abdomen: Limited portions of the upper abdomen are unremarkable. IMPRESSION: Patchy airspace opacities are present in the lingula and bilateral lung bases, [id number]-right. No suspicious pulmonary nodule. Biapical scarring. Severe centrilobular emphysema. ----- AP portable chest CLINICAL INDICATION: sob FINDINGS: Heart size is enlarged. The aorta is tortuous. Prominent interstitial markings in the lung bases. IMPRESSION: 1. No acute cardiopulmonary pathology. There is a suggestion of interstitial lung disease in the lower lung zones. 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 Medications: Please start Flomax 0.4 mg once daily. Please take azithromycin 500 mg once daily for five days. Please take prednisolone 20 mg twice daily for five days. Care Plan: Care plan: Please start Flomax 0.4 mg once daily. Please take azithromycin 500 mg once daily for five days. Please take prednisolone 20 mg twice daily for five days. Please follow-up with PCP in one week. Scheduled Azithromycin (Azithromycin), 1 TAB PO DAILY Carboxymethylcellulose-Glyceri (Refresh Optive), 1 DROP EACHEYE ONCE, (Reported) Guaifenesin (Gnp Tab Tussin), 600 MG PO DAILY, (Reported) Latanoprost (Latanoprost), 1 DROP EACHEYE QPM, (Reported) Latanoprost (Latanoprost), 1 DROP EACHEYE QPM, (Reported) Lisinopril (Lisinopril), 2.5 MG PO DAILY, (Reported) Prednisone (Prednisone), 20 MG PO BID Tamsulosin Hcl (Tamsulosin Hcl), 1 CAP PO DAILY Miscellaneous Medications Guaifenesin (Guaifenesin), 600 MG PO, (Reported) Discharge Statement: "Patient was advised to return to the ER or call 911 if any headaches, dizziness, shortness of breath, chest pain, abdominal pain, bleeding, fevers, or worsening of medical condition. Patient was counseled about treatment plan, medications, possible side effects, patientverbalized understanding. All questions were answered to the best of my ability. 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
== END 2025-05-06 17:20 | disposition home or self-care (01) | DRG 177 ==
LOC: EDBD 15:44 → ER 15:44 → OVERFLOW 23:07 → WEST WING 05-05 02:53
PROVIDERS: ADMIT Student in an Organized Health Care Education/Training Program; ATTEND Student in an Organized Health Care Education/Training Program
DX: J15.69 Pneumonia due to other Gram-negative bacteria (principal); J96.21 Acute and chronic respiratory failure with hypoxia; N17.0 Acute kidney failure with tubular necrosis; R65.11 Systemic inflammatory response syndrome (SIRS) of non-infectious origin with acute organ dysfunction; J44.1 Chronic obstructive pulmonary disease with (acute) exacerbation; J15.9 Unspecified bacterial pneumonia; Z99.81 Dependence on supplemental oxygen; I35.0 Nonrheumatic aortic (valve) stenosis; I11.9 Hypertensive heart disease without heart failure; M19.09 Primary osteoarthritis, other specified site; Z90.49 Acquired absence of other specified parts of digestive tract; K21.9 Gastro-esophageal reflux disease without esophagitis; I25.10 Atherosclerotic heart disease of native coronary artery without angina pectoris; G47.00 Insomnia, unspecified; E78.5 Hyperlipidemia, unspecified; H40.89 Other specified glaucoma; E87.5 Hyperkalemia; I45.10 Unspecified right bundle-branch block; K42.9 Umbilical hernia without obstruction or gangrene; R00.0 Tachycardia, unspecified; I25.2 Old myocardial infarction; Z87.891 Personal history of nicotine dependence; Z79.899 Other long term (current) drug therapy
CPT/HCPCS: 36415; 71045; 71250; 80048; 80053; 80061; 80076; 81001; 82306; 82607; 83036; 83880; 84132; 84439; 84443; 84484; 85025; 86803; 87340; 93005; 93306; 94640; 96374; G0378; J1815

== ENCOUNTER 2025-06-29 11:50 | Emergency (ER) | payer OTHER, MEDICARE ==
[~2025-06-29] VITALS: Ht 182.9 cm; Wt 98.7 kg
[~2025-06-29 11:50] MED LIST: AZIT500T66 PO; CARB0.5D8 EACHEYE; GUAI200T6 PO; GUAI400T35 PO; LATA0.008 EACHEYE; LISI2.5T47 PO; PRED20TA2 PO; TAMS0.4C39 PO
--- NOTE | 2025-06-29 13:04 | DVH ---
EXAM: XY CHEST PORTABLE Indication: hi bp Technique: Single frontal view of the chest was obtained Comparison: XY CHEST PORTABLE on DOS: 05/04/25 FINDINGS: Lines and Tubes: None Lungs: Reticular nodular opacities are visualized at the lung bases. Pulmonary emphysema. Pleura: No effusion. No pneumothorax. Cardiomediastinal contours: Cardiomegaly. Atherosclerotic vascular calcifications of the thoracic ao rta are noted. Bones: No acute osseous abnormality. IMPRESSION: Stable reticular nodular opacities at the lung bases and right upper lung suggestive pulmonary fibros is, not significantly changed compared to prior exam.
[2025-06-29 13:12] LABS: Hematocrit 42.1 % (41.0-53.0); Hemoglobin 14.1 g/dL (13.5-17.5); Mean Corpuscular Hemoglobin 32.5 pg (28.0-32.0); Mean Corpuscular Volume 97.3 fL (80.0-100.0); Nucleated Red Blood Cells % 0.0 %
--- NOTE | 2025-06-29 13:15 | ED.PDOC ---
HPI Comments 85y M who presents to the ED for chief complaint of high blood pressure. Pt states he checks his blood pressure daily at home with states after checking it multiple times today, notes BP was ranging in the systolic value fo 150- 170's. Pt got worried and called his medical hotline who recommend pt come to the ED for further evaluation. Pt in the ED, has stable vitals with noted BP of 121/67, rr 18, heart rate 73, 02 sat of 94% and temp of 97.7 F. Pt is ax0x4 and able to answer all questions. He denies any other symptoms besides the elevated blood pressure. Pt has noted history of COPD on 3 L home oxygen, GERD, HLD, HTN, and OR. Pt otherwise denies any other symptoms at this time. Chief Complaint: High Blood Pressure Time Seen by MD: 13:07 Reviewed Notes: Medications, Allergies Allergies: Coded Allergies: NO KNOWN ALLERGIES (Unverified , 12/04/20) Home Meds Active Scripts Tamsulosin Hcl (Tamsulosin Hcl) 0.4 Mg Cap, 1 CAP PO DAILY for 30 Days, #30 CAP 5 Refills Prov:SHANI MULLINS RESIDENT 05/06/25 Prednisone (Prednisone) 20 Mg Tab, 20 MG PO BID for 5 Days, #10 MG Prov:SHANI MULLINS RESIDENT 05/06/25 Azithromycin (Azithromycin) 500 Mg Tab, 1 TAB PO DAILY for 5 Days, #5 TAB Prov:SHANI MULLINS RESIDENT 05/06/25 Reported Medications Lisinopril (Lisinopril) 2.5 Mg Tab, 2.5 MG PO DAILY for 30 Days, MG 05/05/25 Latanoprost (LATANOPROST) 0.005 % Bernarda, 1 DROP EACHEYE QPM, #7.5 ML 3 Refills 05/05/25 Guaifenesin (Guaifenesin) 200 Mg Tab, 600 MG PO, TAB 05/05/25 Latanoprost (LATANOPROST) 0.005 % Bernarda, 1 DROP EACHEYE QPM, #7.5 ML 3 Refills 05/05/25 Guaifenesin (GNP TAB TUSSIN) 400 Mg Tab, 600 MG PO DAILY, TAB 05/05/25 Carboxymethylcellulose-Glyceri (REFRESH OPTIVE) 1 Ml Ruslan, 1 DROP EACHEYE ONCE, #30 ML 6 Refills 05/05/25 Information Source: Patient Mode of Arrival: walker Past Medical History PAST MEDICAL HISTORY: CAD, COPD, GERD, High Lipids, HTN, OR Surgical History: Appendectomy, PTCA Family History Family History: Reviewed,noncontributory to illness Social History Smoker: Quit Greater Than 1 Year Alcohol: Occasionally Drugs: Denies Drug Use Lives In: Home All Other Systems: Reviewed and Negative (see HPI) Physical Exam General Appearance: No Apparent Distress HEENT: Other (Pupils and face symmetric. Moist mucous membranes.) Neck: Full Range of Motion, Normal Inspection Respiratory: Lungs Clear, No Accessory Muscle Use, No Respiratory Distress, Normal Breath Sounds Cardiovascular: No Edema, No JVD, Regular Rate/Rhythm Breast Exam: Deferred Gastrointestinal: Non Tender, Soft Genitalia: Deferred Pelvic: Deferred Rectal: Deferred Extremities: Normal inspection, Normal range of motion, Non-tender, No pedal edema Neurologic: Alert (Oriented x4), Normal Affect, Normal Mood, Other (Ambulatory) Cerebellar Function: NOT DONE Reflexes: NOT DONE Skin: Dry, Normal Color, Warm Lymphatic: NOT DONE EKG EKG : Comments Sinus rhythm, rate 62, [place] slightly prolonged at 2:05 a.m., QRS prolonged at 139, normal QTC interval, normal axis, right bundle-branch block, occasional supraventricular bigeminy nonspecific T change. Was a procedure done? Was a procedure done?: No CP Differential Dx Differential Diagnosis: Anxiety / Panic Attack, Electrolyte Disorder, OR, Pulmonary Embolus, PVC's, Renal Failure Differential Diagnosis: CHF, HTN Essential, HTN Accelerated, Medical NonCompliance X-Ray, Labs, Meds, VS Vital Signs Date Time Temp Pulse Resp B/P (MAP) Pulse Ox O2 Delivery O2 Flow Rate FiO2 06/29/25 12:20 97.7 73 18 121/67 94 97.7 06/29/25 11:59 62 Lab Test 06/29/25 14:02 06/29/25 12:17 Range/Units Troponin I High Sensitivity 6 6 </=54 ng/L White Blood Count 5.1 4.4-10.8 10^3/uL Red Blood Count 4.33 L 4.5-5.90 10^6/uL Hemoglobin 14.1 13.5-17.5 g/dL Hematocrit 42.1 41.0-53.0 % Mean Corpuscular Volume 97.3 80.0-100.0 fL Mean Corpuscular Hemoglobin 32.5 H 28.0-32.0 pg Mean Corpuscular Hemoglobin Concent 33.4 32.0-36.0 g/dL Red Cell Distribution Width 12.9 11.8-14.3 % Platelet Count 133 L 140-450 10^3/uL Mean Platelet Volume 11.0 H 6.9-10.8 fL Neutrophils (%) (Auto) 69.2 37.0-80.0 % Lymphocytes (%) (Auto) 17.0 10.0-50.0 % Monocytes (%) (Auto) 9.4 0.0-12.0 % Eosinophils (%) (Auto) 3.3 0.0-7.0 % Basophils (%) (Auto) 1.1 0.0-2.0 % Neutrophils # (Auto) 3.5 1.6-8.6 10 ^3/uL Lymphocytes # (Auto) 0.9 0.4-5.4 10 ^3/uL Monocytes # (Auto) 0.5 0-1.3 10 ^3/uL Eosinophils # (Auto) 0.2 0-0.8 10 ^3/uL Basophils # (Auto) 0.1 0-0.2 10 ^3/uL Nucleated Red Blood Cells 0.0 % Sodium Level 143 136-145 mmol/L Potassium Level 4.9 3.5-5.1 mmol/L Chloride Level 106 98-107 mmol/L Carbon Dioxide Level 30 20-31 mmol/L Anion Gap 7 5-15 Blood Urea Nitrogen 33 H 9-23 mg/dL Creatinine 1.70 H 0.700-1.30 mg/dL Glomerular Filtration Rate Calc 39 >90 mL/min BUN/Creatinine Ratio 19.4 10.0-20.0 Serum Glucose 90 74-106 mg/dL Calcium Level 9.4 8.7-10.4 mg/dL B-Type Natriuretic Peptide 175.92 0-100 pg/mL [address] [address] Ph: [phone] DIAGNOSTIC IMAGING Diagnostic Imaging Report : [id number] Signed PATIENT: MICHELLE SANCHEZ ACCT: [id number] UNIT: [id number] : 1940 LOC: ER ROOM / BED: / AGE / SEX: 85 / M ADM STATUS: REG ER SERVICE 1204 ORDERING PHYSICIAN: PANDA DESAI MD PROCEDURE(s): CXRP - CHEST PORTABLE REASON: hi bp ORDER NUMBER(s): [id number], ACCESSION NUMBER(s): [id number] EXAM: XY CHEST PORTABLE Indication: hi bp Technique: Single frontal view of the chest was obtained Comparison: XY CHEST PORTABLE on DOS: 05/04/25 FINDINGS: Lines and Tubes: None Lungs: Reticular nodular opacities are visualized at the lung bases. Pulmonary emphysema. Pleura: No effusion. No pneumothorax. Cardiomediastinal contours: Cardiomegaly. Atherosclerotic vascular calcifications of the thoracic aorta are noted. Bones: No acute osseous abnormality. IMPRESSION: Stable reticular nodular opacities at the lung bases and right upper lung suggestive pulmonary fibrosis, not significantly changed compared to prior exam. ATED BY: DONNY JOLLEY MD DICTATED DATE/TIME: 06/29/25 1302 SIGNED BY: DONNY JOLLEY MD SIGNED DATE/TIME: 06/29/25 1302 CC: X-Ray, Labs, Meds, VS Comment 85-year-old male with a history of hypertension, CAD, COPD on home O2, dyslipidemia GERD presenting with asymptomatic hypertension at home Vitals remarkable for oxygen saturation 94% on 3 L nasal cannula Exam unremarkable Rhythm strip independently interpreted by me: Sinus rhythm, rate 62, transient supraventricular bigeminy Chest x-ray IMPRESSION: Stable reticular nodular opacities at the lung bases and right upper lung suggestive pulmonary fibrosis, not significantly changed compared to prior exam. CBC unremarkable, basic metabolic panel remarkable for BUN 33, creatinine 1.7 (essentially stable since 05/06/2025) 2 serial troponins negative, BNP 175.92 (essentially stable since 05/05/25) On re-evaluation without any intervention, patient's blood pressure was 121/67, and other vitals were unremarkable. He remained asymptomatic. Patient appears stable for discharge with close outpatient follow-up with his primary physician. Continue current medications as directed. Time of 1ST Reevaluation: 15:41 Reevaluation 1ST: Unchanged Patient Education/Counseling: Diagnosis, Treatment Family Education/Counseling: No Family Present SEPSIS Sepsis Screen Date sepsis recognized/suspect: Jun 29, 2025 Time Sepsis recognized/suspect: 1227 Recent Procedure: No On Antibiotic Therapy: No Respiratory Rate >20: No Heart Rate >90: No Temp<36 C (96.8 F) or >38.3 C: No SBP <90 or MAP <65 mmHG: No New Acute Mental Status Change: No Is the patient on CPAP, BIPAP,: No Physician Orders Chest Portable (06/29/25 12:04) Urinalysis (06/29/25 12:04) Electrocardigram (06/29/25 12:04) Troponin-I Hs (06/29/25 15:04) Vital Signs Date Time Temp Pulse Resp B/P (MAP) Pulse Ox O2 Delivery O2 Flow Rate FiO2 06/29/25 12:20 97.7 73 18 121/67 94 97.7 06/29/25 11:59 62 Laboratory Tests Test 06/29/25 12:17 White Blood Count 5.1 10^3/uL (4.4-10.8) Departure 1 Departure Time of Disposition: 15:41 Impression: Primary Impression: Episode of hypertension Disposition: HOME / SELF CARE / HOMELESS Condition: Stable Additional Instructions: Your blood tests and x-rays were unremarkable. Your blood pressure is now normal. No acute treatment is necessary at this time. Follow-up with your primary doctor in 1-2 days for blood pressure recheck. Continue current medications as directed. Return to ER for recurrent symptoms. Discharged With: Self Critical Care Note Critical Care Time?: No Stability Stability form required: No Heart Score Heart Score: Heart Score Response (Comments) Value History N/A 0 EKG N/A 0 Age N/A 0 Risk Factors N/A 0 Troponin N/A 0 Total 0 I personally scribed for PANDA DESAI MD ([email or web address]) on 06/29/25 at 13:15. Electronically submitted by Yoni Booth ([email or web address]). I personally scribed for PANDA DESAI MD ([email or web address]) on 06/29/25 at 13:16. Electronically submitted by Yoni Booth ([email or web address]). PANDA DESAI MD Jun 29, 2025 13:15
[2025-06-29 13:22] LABS: Chloride 106 mmol/L (98-107); Potassium 4.9 mmol/L (3.5-5.1); Sodium 143 mmol/L (136-145)
[2025-06-29 13:23] LABS: Anion Gap 7 (5-15); Carbon Dioxide 30 mmol/L (20-31)
[2025-06-29 13:24] LABS: Calcium 9.4 mg/dL (8.7-10.4)
[2025-06-29 13:28] LABS: Glucose 90 mg/dL (74-106)
[2025-06-29 13:29] LABS: BUN/Creatinine Ratio 19.4 (10.0-20.0)
[2025-06-29 13:30] LABS: Blood Urea Nitrogen 33 mg/dL (9-23)
[2025-06-29 15:53] VITALS: BP 156/69; PULSE 66; RESP 16; TEMP 97.7; O2SAT 97
--- NOTE | 2025-07-01 14:47 | ECG ---
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
== END 2025-06-29 15:57 | disposition home or self-care (01) ==
LOC: ER 11:50
DX: I10 Essential (primary) hypertension (principal); I25.10 Atherosclerotic heart disease of native coronary artery without angina pectoris; I25.2 Old myocardial infarction; J44.9 Chronic obstructive pulmonary disease, unspecified; Z90.49 Acquired absence of other specified parts of digestive tract; Z79.899 Other long term (current) drug therapy
CPT/HCPCS: 36415; 71045; 80048; 83880; 84484; 85025; 93005